=== PATIENT | female | born 1950 | race Caucasian/White ===

== ENCOUNTER 2017-09-05 10:07 | Emergency (ER) | payer MEDICARE ==
[2017-09-05 12:19] LABS: ALT (SGPT) 28 U/L (8-55); AST (SGOT) 27 U/L (5-34); Albumin 3.6 g/dL (3.4-4.8); Alkaline Phosphatase 78 U/L (40-150); Anion Gap 11 mmol/L (10-20); BUN (Urea Nitrogen) 13 mg/dL (9.8-20.1); Bilirubin, Total 1.2 mg/dL (0.2-1.2); Calc. Creatinine Clearance 0 mL/min (70-130); Calcium 8.9 mg/dL (7.8-10.44); Carbon Dioxide 24 mmol/L (23-31); Chloride 99 mmol/L (98-107); Estimated GFR-MDRD 67; Globulin 3.1 g/dL (2.4-3.5); Glucose 144 mg/dL (80-115); Potassium 3.4 mmol/L (3.5-5.1); Protein, Total 6.7 g/dL (6.0-8.3); Sodium 131 mmol/L (136-145)
--- NOTE | 2017-09-05 12:27 | RAD ---
RADIOGRAPH CHEST 1 VIEW: Date: 09-05-17 Time: 11:58 a.m. HISTORY: 66-year-old female with fever. COMPARISON: None. FINDINGS: Mild patchy airspace densities are noted at the left lower lung zone and right upper lung zone. There is an irregularly shaped, approximately 2 x 2 cm stellate density overlying the right lower lung zon e that appears different from the other infiltrates. Cardiomediastinal silhouette is normal. No pulmo nary edema, pneumothorax, or effacement of the lateral costophrenic angles. IMPRESSION: 1. Right upper lobe and left lower lobe pulmonary opacities. In the setting of fever, they could rep resent pneumonia. 2. Stellate density overlying the right lower lung zone which has a different appearance compared to the other pulmonary densities. Possibilities include pulmonary scar and primary neoplasm. 3. Recommend serial follow up two view chest radiographs, beginning in one week. If the right basilar density persists, CT would be recommended at that time. [facility] POS: [facility]
[2017-09-05 12:28] LABS: Band 16 % (5-11); Hemoglobin 11.8 g/dL (12.0-16.0); Lymphocytes 5 % (21-51); MDiff Complete? YES; Mean Corpuscular HGB CONC 33.1 g/dL (32.0-36.0); Mean Corpuscular Hemoglobin 30.9 pg (27.0-31.0); Mean Corpuscular Volume 93.3 fl (81.0-99.0); Mean Platelet Volume 7.2 fL (7.4-10.4); Monocytes 6 % (0-10); Neutrophil 73 % (42-75); Platelet Count 114 thou/uL (130-400); Red Blood Cell (RBC) Count 3.81 mill/uL (4.20-5.40); White Blood Cell (WBC) Count 12.7 thou/uL (4.8-10.8)
[2017-09-05 13:09] LABS: Bilirubin Small (Negative); Blood, Urine Small (Negative); Clarity CLOUDY (Clear); Glucose, Urine (Dipstick) Negative (Negative); Leukocyte Large (Negative); Nitrite Positive (Negative); Protein, Urine (Dipstick) 30 mg/dL (Neg-Trace)
[2017-09-05 13:12] LABS: Bacteria/HPF 4+ HPF (None Seen); Hyaline Casts/LPF 0-3 HYALINE CAST LPF (0-3 Hyaline); Pathc Cast-AUWi Flag 0.13 (0-2.49); Squamous Epithelial None Seen HPF (0-3)
== END 2017-09-05 13:32 | disposition home or self-care (01) ==
LOC: ERS 10:07
DX: B34.9 Viral infection, unspecified (principal); E86.0 Dehydration; N39.0 Urinary tract infection, site not specified; E20.9 Hypoparathyroidism, unspecified; E78.5 Hyperlipidemia, unspecified; I10 Essential (primary) hypertension; F41.9 Anxiety disorder, unspecified; F32.9 Major depressive disorder, single episode, unspecified; Z87.891 Personal history of nicotine dependence
CPT/HCPCS: 36415; 71045; 80053; 81003; 81015; 85025; 87804; 96360

== ENCOUNTER 2017-09-23 19:19 | Observation (INO) | payer MEDICARE ==
[~2017-09-23 19:19] MED LIST: ISOVUE-370 76%-LOCM 1 ML ONE
[2017-09-23 19:54] LABS: #Basophils 0.1 thou/uL (0.0-0.2); #Eosinphils 0.2 thou/uL (0.0-0.7); #Lymphocytes 3.2 thou/uL (1.20-3.40); #Monocytes 0.5 thou/uL (0.11-0.59); #Neutrophils 3.1 thou/uL (1.40-6.50); %Basophils 1.3 % (0.0-1.0); %Eosinophils 2.9 % (0.0-10.0); %Lymphocytes 44.9 % (21.0-51.0); %Monocytes 7.2 % (0.0-10.0); %Neutrophils 43.7 % (42.0-75.0); Hemoglobin 10.5 g/dL (12.0-16.0); Mean Corpuscular HGB CONC 32.8 g/dL (32.0-36.0); Mean Corpuscular Volume 94.5 fl (81.0-99.0); Mean Platelet Volume 6.3 fL (7.4-10.4); Platelet Count 276 thou/uL (130-400); RBC Distribution Width 12.6 % (11.5-14.5); Red Blood Cell (RBC) Count 3.38 mill/uL (4.20-5.40)
--- NOTE | 2017-09-23 20:03 | RAD ---
PORTABLE CHEST: 09/23/17 HISTORY: Chest pain. Lung benson are clear. No infiltrates seen. Heart and mediastinum are unremarkable. IMPRESSION: No acute abnormality identified. POS: [facility]
[2017-09-23 20:18] LABS: ALT (SGPT) 30 U/L (8-55); AST (SGOT) 35 U/L (5-34); Albumin 3.7 g/dL (3.4-4.8); Alkaline Phosphatase 88 U/L (40-150); Anion Gap 10 mmol/L (10-20); BUN (Urea Nitrogen) 13 mg/dL (9.8-20.1); Bilirubin, Total 0.4 mg/dL (0.2-1.2); CK (CPK) 85 U/L (29-168); Calc. Creatinine Clearance 0 mL/min (70-130); Calcium 9.2 mg/dL (7.8-10.44); Carbon Dioxide 31 mmol/L (23-31); Chloride 102 mmol/L (98-107); Estimated GFR-MDRD 69; Globulin 2.8 g/dL (2.4-3.5); Glucose 102 mg/dL (80-115); Lipase 21 U/L (8-78); Potassium 3.6 mmol/L (3.5-5.1); Protein, Total 6.5 g/dL (6.0-8.3); Sodium 139 mmol/L (136-145)
[2017-09-23 20:22] LABS: CKMB 1.8 ng/mL (0-6.6); Troponin I Less than 0.010 ng/mL (< 0.028)
[2017-09-23] MEDS ORDERED: Nitroglycerin 0.4 MG TAB (25 Tab Bottle) PO PRN (21:16)
[2017-09-23] MEDS ORDERED: Acetaminophen 325 MG TAB PO PRN ×2 (21:19→22:58)
[2017-09-23] MEDS ORDERED: Ondansetron PF 4 MG/2 ML Vial IVP PRN ×2 (21:19→22:58)
[2017-09-23] MEDS ORDERED: Milk Of Magnesia 30 ML UDCUP PO PRN (21:19)
--- NOTE | 2017-09-23 21:54 | CT ---
CT PULMONARY ANGIO OF CHEST WITH CONTRAST: 09/23/17 Multiple axial tomograms obtained through the chest with IV enhancement. HISTORY: Chest pain. FINDINGS: Pulmonary arteries are adequately opacified and appear unremarkable. No evidence of pulmonary embolus identified. Thoracic aorta shows no evidence of dissection. Mediastinum unremarkable. Review of the lungs shows confluent atelectasis and/or infiltrate in the lingula adjacent to the fiss ure on the left. The lungs otherwise appear clear. Some mild stranding in the anterior lower right middle lobe is seen . There is also some subtle infiltrative changes in the right upper lobe along the fissure which coul d potentially represent inflammatory infiltrate. IMPRESSION: 1. No evidence of pulmonary embolus. 2. Confluent infiltrate and/or atelectasis in the lingula on the left abutting the heart border. Infectious etiology should be considered. 3. Also possible infectious infiltrate in the right upper lobe along the fissure. Atelectatic ch anges in the anterior right middle lobe. POS: [facility]
[2017-09-23] MEDS ORDERED: Fentanyl 100 MCG/2 ML VIAL SLOW IVP PRN (22:58)
[2017-09-23] MEDS ORDERED: Ondansetron ODT 4 MG TAB SL PRN (22:58)
[2017-09-23] MEDS ORDERED: HYDROcodone/Acetaminophen 5/325 mg Tablet PO PRN ×2 (22:58)
[2017-09-23 23:07] VITALS: BMI 19.3
[2017-09-23 23:28] LABS: Troponin I 0.014 ng/mL (< 0.028)
[2017-09-24 02:12] LABS: #Basophils 0.1 thou/uL (0.0-0.2); #Eosinphils 0.2 thou/uL (0.0-0.7); #Lymphocytes 2.6 thou/uL (1.20-3.40); #Monocytes 0.6 thou/uL (0.11-0.59); #Neutrophils 2.4 thou/uL (1.40-6.50); %Basophils 1.5 % (0.0-1.0); %Lymphocytes 44.7 % (21.0-51.0); %Monocytes 10.1 % (0.0-10.0); %Neutrophils 40.6 % (42.0-75.0); Hemoglobin 10.4 g/dL (12.0-16.0); Mean Corpuscular HGB CONC 33.9 g/dL (32.0-36.0); Mean Corpuscular Volume 94.4 fl (81.0-99.0); Mean Platelet Volume 6.2 fL (7.4-10.4); Platelet Count 223 thou/uL (130-400); RBC Distribution Width 12.5 % (11.5-14.5); Red Blood Cell (RBC) Count 3.25 mill/uL (4.20-5.40); White Blood Cell (WBC) Count 5.8 thou/uL (4.8-10.8)
[2017-09-24 02:42] LABS: Anion Gap 9 mmol/L (10-20); BUN (Urea Nitrogen) 11 mg/dL (9.8-20.1); Calc. Creatinine Clearance 59 mL/min (70-130); Calcium 9.1 mg/dL (7.8-10.44); Carbon Dioxide 32 mmol/L (23-31); Chloride 105 mmol/L (98-107); Estimated GFR-MDRD 76; Glucose 111 mg/dL (80-115); Potassium 3.6 mmol/L (3.5-5.1); Sodium 142 mmol/L (136-145); Troponin I Less than 0.010 ng/mL (< 0.028)
[2017-09-24] MEDS ORDERED: traMADol HCl 50 MG TAB PO PRN (03:25)
[2017-09-24] MEDS ORDERED: Melatonin 3 MG TAB PO PRN (03:25)
[2017-09-24] MEDS ORDERED: ALPRAZolam 0.5 MG TAB PO PRN (03:25)
[2017-09-24 05:54] LABS: Cardiac Risk 2.3 (Less than 4.5)
[2017-09-24] MEDS ORDERED: Levothyroxine Sodium 50 MCG TAB PO SCH (06:00)
--- NOTE | 2017-09-24 07:03 | HP ---
PRIMARY CARE PHYSICIAN: Pedro Luis Mills M.D. PRESENTING COMPLAINT: Chest pain. HISTORY OF PRESENT ILLNESS: A 66-year-old female with a past medical history of hypothyroidism, hype rtension, osteoarthritis, and anxiety/depression, who presents with a history of chest pain. She rep orts she has had chest pain for several months, but then yesterday she developed severe 10/10 retrost ernal pain, which radiated to her right shoulder and back, lasted for a few minutes and then spontane ously went away. It was associated with nausea, but no vomiting, shortness of breath, PND, orthopnea , or lower extremity edema. She took 2 nitroglycerin pills, which relieved her pain. However, pain continued to return and so decided to come to the emergency room. She has had a stress test several years ago, which she reports that was normal. Also reports a cardiac catheterization years ago, whic h according to her was normal. Chest pain is currently resolved and the patient reports she took 81 mg of aspirin today before coming to the emergency room. PAST MEDICAL HISTORY: As stated in the HPI. PAST SURGICAL HISTORY: None. FAMILY HISTORY: Reviewed and noncontributory as the patient is adopted. SOCIAL HISTORY: She does not smoke cigarettes, drink alcohol or use illicit drugs. ALLERGIES: CODEINE. REVIEW OF SYSTEMS: A 12-point review of systems conducted and negative except as stated in HPI. PHYSICAL EXAMINATION: VITAL SIGNS: Stable and within hemodynamic limits. GENERAL: Not in acute distress, lying comfortably in bed. HEENT: Normocephalic, atraumatic. Not pale, anicteric. PERRLA, EOMI. NECK: Supple, full range of movement. No JVD. RESPIRATORY: Vesicular breath sounds bilaterally. No wheezes or rales. CARDIOVASCULAR: S1, S2 only. No murmurs, rubs or gallops. ABDOMEN: Bowel sounds positive, nontender, nondistended, no organomegaly. GENITOURINARY: Deferred. MUSCULOSKELETAL: Full range of movement. SKIN: Warm and well-perfused. NEUROLOGIC: Alert and well oriented to time, place and person. No focal deficits. PSYCHIATRIC: Normal mood and affect. LABORATORY DATA: CBC with no marked abnormalities. Chemistry also with no marked abnormalities. Tr oponin trended and negative. Chest x-ray showed no acute pathology. CTA chest showed no evidence of pulmonary embolus, but shows confluent infiltrate and/or atelectasis in the lingula on the left abut ting the heart border; infectious etiology should be considered, also possible infectious infiltrate in the right upper border along the fissure, and atelectatic changes in the right anteromedial lobe. ASSESSMENT AND PLAN: 1. Chest pain, concern for possible ACS as the patient has had history of chest pain, is on nitrogly cerin and aspirin and has had cardiac workup in the past for atypical chest pain including stress jillian t and catheterization. We will admit under observation on telemetry, trend cardiac enzymes, placed o n aspirin, nitroglycerin and morphine p.r.n. for chest pain. Oxygen supplementation as required and obtain a Cardiology consult. 2. Hypothyroidism. We will get TSH and continue home medications. 3. Hypertension. Blood pressure is currently well controlled on the outpatient basis. She takes me toprolol. We will resume medications. 4. Hyperlipidemia. Resume statin. 5. Anxiety/depression. Denies SI, HI or depressed mood. We will resume her home regimen. Of note, we will also obtain a lipid profile.
[2017-09-24] MEDS ORDERED: Oxybutynin ER 5 MG TAB PO SCH (09:00)
[2017-09-24] MEDS ORDERED: Metoprolol Tartrate 25 MG TAB PO SCH (09:00)
[2017-09-24] MEDS ORDERED: Docusate 100 MG CAP PO SCH (09:00)
[2017-09-24] MEDS ORDERED: Pramipexole Di-HCl 1 MG TAB PO SCH (09:00)
[2017-09-24] MEDS ORDERED: Aspirin 81 mg Enteric Coated Tablet PO SCH (09:00)
[2017-09-24] MEDS ORDERED: DULoxetine 60 MG CAP PO SCH (09:00)
[2017-09-24] MEDS ORDERED: Rosuvastatin 10 MG TAB PO SCH (09:00)
[2017-09-24] MEDS ORDERED: Saccharomyces boulardii 250 MG CAP PO SCH (09:00)
[2017-09-24] MEDS ORDERED: Non-Formulary Item 1 EACH (Biotin [Biotin] 1,000 MCG) PO SCH (09:00)
[2017-09-24] MEDS ORDERED: ADENOSINE 60 MG/20 ML VIAL ONE (13:00)
[2017-09-24] MEDS: Heparin 5,000 UNITS/ML VIAL SC SCH ×2 (14:46→16:23)
--- NOTE | 2017-09-24 15:31 | NM ---
CARDIAC SPECT: CLINICAL HISTORY: 66-year-old female with chest pain and hypertension. TECHNIQUE: A myocardial perfusion scan was performed using the single isotope one day protocol with technetium-9 9m sestamibi. 10 mCi were injected intravenously for the rest exam followed by 28 mCi for the stress exam. Pharmacologic stress with Adenosine was monitored and interpreted by Dr. Tidwell. FINDINGS: Homogeneous tracer distribution is seen in the myocardial segments on stress and rest images without fixed or reversible defects. TID ratio measures 1.36. GATED SPECT LVEF: 81%. WALL MOTION EXAM: Normal. IMPRESSION: TID ratio is 1.36. Clinical correlation is recommended. POS: [facility]
[2017-09-24 16:16] VITALS: BP 136/67; TEMP 98.2
--- NOTE | 2017-09-24 21:17 | DIS ---
DATE OF ADMISSION: 09/23/2017 DATE OF DISCHARGE: 09/24/2017 DISCHARGE DIAGNOSES: 1. Chest pain, non-cardiac. 2. Hypertension. 3. Hypothyroidism. 4. Anxiety/depression. 5. Dyslipidemia. CONSULTATIONS: None. PERTINENT LABORATORY AND X-RAY FINDINGS: Basic metabolic profile within normal limits. Troponin I n egative x3. Total cholesterol 123, triglycerides 73, HDL 54, LDL 54. TSH 3.0. CBC showed a hemoglo bin of 10.4, hematocrit 31. CT angiogram of the chest dated 09/23/2017 showed no evidence for pulmon chloe embolus. Atelectasis noted. Portable chest x-ray dated 09/23/2017 showed no acute cardiopulmona ry process. HOSPITAL COURSE: The patient was observed on the telemetry unit after initially presenting with ches t pain, undergoing serial troponin I negative x3. The patient underwent a Cardiolite stress testing showing no evidence of reversible or fixed ischemia with calculated ejection fraction of 81%. Teleme try monitoring showed sinus mechanism without evidence of acute arrhythmia or dysrhythmia. The patie nt overall remained clinically stable under observation with likely chest pain, noncardiac in nature. The patient overall clinically stable and ready for discharge on 09/24/2017. DISCHARGE MEDICATIONS: 1. Xanax 0.5 mg p.o. t.i.d. 2. Enteric coated aspirin 81 mg 1 tab p.o. daily. 3. Biotin 1000 mcg p.o. daily. 4. Vitamin D3 one capsule p.o. daily. 5. Cymbalta 60 mg p.o. daily. 6. Synthroid 50 mcg p.o. daily. 7. Melatonin 5 mg p.o. at bedtime p.r.n. 8. Lopressor 25 mg p.o. daily. 9. Nitroglycerin 0.4 mg sublingually q.5 minutes p.r.n. chest pain. 10. Oxybutynin 10 mg p.o. daily. 11. Protonix 40 mg p.o. daily. 12. Pramipexole 1 mg p.o. b.i.d. 13. Crestor 10 mg p.o. daily. 14. Tramadol 50 mg 1-2 tabs p.o. q.6 hours p.r.n. pain. FOLLOWUP: The patient may follow up with her primary care provider, Dr. Pedro Luis Mills within 7 days o f discharge. The patient may follow up with her primary computer help desk representative, Dr. Collins on an as needed bas is. CONDITION ON DISCHARGE: Stable. ACTIVITY: Ad marie. DIET: Heart healthy. CODE STATUS: FULL. DISPOSITION: Home on 09/24/2017.
[2017-09-25] MEDS ORDERED: Prevnar 13-Val Conj/PF 0.5 ML SYRINGE IM ONE (09:00)
--- NOTE | 2017-09-30 15:14 | EKG ---
Test Reason : Blood Pressure : / mmHG Vent. Rate : 074 BPM Atrial Rate : 075 BPM P-R Int : 000 ms QRS Dur : 080 ms QT Int : 394 ms P-R-T Axes : 000 -26 054 degrees QTc Int : 437 ms Accelerated Junctional rhythm Abnormal ECG Confirmed by JOSE LAWRENCE ([id number]), editor newspaper BALDOMERO MONTGOMERY ([id number]) on 09/30/2017 3:13:29 PM Referred By: Confirmed By:JOSE LAWRENCE
--- NOTE | 2017-10-09 14:07 | STRESS ---
Acquisition Time: 2017-09-24 12:21:42 Total Exercise Time: 00:04:00 Test Indications: CHEST PAIN Medications: Protocol: ADENOSINE Max HR: 095 BPM 62% of Pred: 152 BPM Max BP: 146/068 mmHG Max Work Load: 1.0 METS RESTING ECG: NORMAL SINUS RHYTHM NORMAL BP RESPONSE ECTOPY: NONE ECG STRESS: NO SIGNIFICANT CHANGES INTERPRETATION: NEGATIVE ECG/AWAIT NUCLEAR IMAGES FOR DEFINITIVE DIAGNOSIS Confirmed by DR. Earl PURDY ([id number]), editorial project manager AC DEGROOT ([id number]) on 10/09/2017 2:06:34 PM Referred By: MD Kelly HUGGINS Confirmed By:DR. Earl PURDY
== END 2017-09-24 17:09 | disposition home or self-care (01) ==
LOC: ERS 19:19 → 2SW 23:02
PROVIDERS: ADMIT Internal Medicine; ATTEND Internal Medicine
DX: R07.2 Precordial pain (principal); I10 Essential (primary) hypertension; E03.9 Hypothyroidism, unspecified; F41.8 Other specified anxiety disorders; E78.5 Hyperlipidemia, unspecified; M19.90 Unspecified osteoarthritis, unspecified site; E78.00 Pure hypercholesterolemia, unspecified; Z79.82 Long term (current) use of aspirin; Z79.899 Other long term (current) drug therapy; Z90.49 Acquired absence of other specified parts of digestive tract; Z90.710 Acquired absence of both cervix and uterus; Z98.890 Other specified postprocedural states
CPT/HCPCS: 71045; 71275; 78452; 80048; 80053; 80061; 82550; 82553; 83690; 84443; 84484 ×3; 85025 ×2; 85379; 93005; 93017; 94760; 99285; A9500; G0378; 36415; J0153; J1644

== ENCOUNTER 2017-10-18 12:54 | Outpatient (CLI) | payer MEDICARE | END 2017-10-18 12:55 | disposition home or self-care (01) | LOC: BICMAMMO 12:54 | PROVIDERS: ATTEND Internal Medicine | DX: Z12.31 Encounter for screening mammogram for malignant neoplasm of breast (principal) | CPT/HCPCS: 77063; 77067 ==

== ENCOUNTER 2017-11-10 13:03 | Emergency (ER) | payer MEDICARE ==
[2017-11-10 15:21] LABS: #Basophils 0.1 thou/uL (0.0-0.2); #Eosinphils 0.4 thou/uL (0.0-0.7); #Lymphocytes 1.7 thou/uL (1.20-3.40); #Neutrophils 7.4 thou/uL (1.40-6.50); %Basophils 1.1 % (0.0-1.0); %Eosinophils 3.9 % (0.0-10.0); %Lymphocytes 16.1 % (21.0-51.0); %Monocytes 9.8 % (0.0-10.0); Hemoglobin 11.5 g/dL (12.0-16.0); Mean Corpuscular HGB CONC 31.8 g/dL (32.0-36.0); Mean Corpuscular Hemoglobin 30.3 pg (27.0-31.0); Mean Corpuscular Volume 95.3 fl (81.0-99.0); Mean Platelet Volume 7.2 fL (7.4-10.4); Platelet Count 199 thou/uL (130-400); RBC Distribution Width 12.7 % (11.5-14.5); Red Blood Cell (RBC) Count 3.78 mill/uL (4.20-5.40); White Blood Cell (WBC) Count 10.6 thou/uL (4.8-10.8)
[2017-11-10 15:40] LABS: ALT (SGPT) 33 U/L (8-55); AST (SGOT) 33 U/L (5-34); Albumin 3.9 g/dL (3.4-4.8); Alkaline Phosphatase 73 U/L (40-150); Anion Gap 8 mmol/L (10-20); BUN (Urea Nitrogen) 11 mg/dL (9.8-20.1); Bilirubin, Total 0.4 mg/dL (0.2-1.2); Calc. Creatinine Clearance 0 mL/min (70-130); Calcium 8.9 mg/dL (7.8-10.44); Carbon Dioxide 28 mmol/L (23-31); Chloride 104 mmol/L (98-107); Estimated GFR-MDRD 79; Globulin 2.7 g/dL (2.4-3.5); Glucose 109 mg/dL (80-115); Potassium 3.6 mmol/L (3.5-5.1); Protein, Total 6.6 g/dL (6.0-8.3); Sodium 136 mmol/L (136-145)
[2017-11-10] MEDS ORDERED: Acetaminophen 500 MG TAB ONE (15:59)
--- NOTE | 2017-11-10 16:25 | CT ---
CONTRAST ENHANCED CT IMAGES OF SOFT TISSUE NECK: 11/10/17 HISTORY: Patient complaining of left sided neck pain, cyst-like knot to left neck for two days. Contrast enhanced CT images of the soft tissue neck obtained. No definite evidence of neck masses or lesions seen. No evidence of lymphadenopathy seen. The right a nd left common and internal carotid arteries are patent. The paranasal sinuses are well aerated. No e vidence of submandibular masses seen. No significant evidence of cystic or significant large solid ma ss is seen. Minimally enlarged left sided multilevel deep and spinal accessory chain lymph nodes are seen all diameter measuring less than 1 cm. IMPRESSION: No definite evidence of soft tissue neck masses or lesions seen. According to practitioner Jeanmarie, there is a left lateral neck mass. I do not visualize this on CT. If there is a palpable lesion, I do recommend ENT consultation to further evaluate this patient. Multiple subcentimeter deep cervical and spinal accessory chain lymph nodes are present slightly more prominent on the left than on the right. POS: [facility]
== END 2017-11-10 17:14 | disposition home or self-care (01) ==
LOC: ERS 13:03
DX: L04.0 Acute lymphadenitis of face, head and neck (principal); E20.9 Hypoparathyroidism, unspecified; E03.9 Hypothyroidism, unspecified; E78.5 Hyperlipidemia, unspecified; I10 Essential (primary) hypertension; F41.9 Anxiety disorder, unspecified; F32.9 Major depressive disorder, single episode, unspecified; Z87.891 Personal history of nicotine dependence
CPT/HCPCS: 36415; 70491; 80053; 85025

== ENCOUNTER 2017-12-08 00:10 | Emergency (ER) | payer MEDICARE ==
[2017-12-08 01:49] LABS: #Basophils 0.1 thou/uL (0.0-0.2); #Eosinphils 0.4 thou/uL (0.0-0.7); #Lymphocytes 2.2 thou/uL (1.20-3.40); #Monocytes 0.7 thou/uL (0.11-0.59); #Neutrophils 2.5 thou/uL (1.40-6.50); %Basophils 1.1 % (0.0-1.0); %Eosinophils 7.3 % (0.0-10.0); %Lymphocytes 36.8 % (21.0-51.0); %Monocytes 11.9 % (0.0-10.0); %Neutrophils 42.9 % (42.0-75.0); Hemoglobin 10.9 g/dL (12.0-16.0); Mean Corpuscular HGB CONC 33.7 g/dL (32.0-36.0); Mean Corpuscular Hemoglobin 31.4 pg (27.0-31.0); Mean Corpuscular Volume 93.4 fl (81.0-99.0); Mean Platelet Volume 6.9 fL (7.4-10.4); Platelet Count 198 thou/uL (130-400); RBC Distribution Width 12.8 % (11.5-14.5); Red Blood Cell (RBC) Count 3.48 mill/uL (4.20-5.40); White Blood Cell (WBC) Count 5.8 thou/uL (4.8-10.8)
[2017-12-08 02:19] LABS: ALT (SGPT) 43 U/L (8-55); AST (SGOT) 42 U/L (5-34); Albumin 3.8 g/dL (3.4-4.8); Alkaline Phosphatase 68 U/L (40-150); Anion Gap 9 mmol/L (10-20); BUN (Urea Nitrogen) 14 mg/dL (9.8-20.1); Bilirubin, Total 0.3 mg/dL (0.2-1.2); Calc. Creatinine Clearance 0 mL/min (70-130); Calcium 9.2 mg/dL (7.8-10.44); Carbon Dioxide 29 mmol/L (23-31); Chloride 104 mmol/L (98-107); Estimated GFR-MDRD 70; Globulin 2.7 g/dL (2.4-3.5); Glucose 109 mg/dL (80-115); Protein, Total 6.5 g/dL (6.0-8.3); Sodium 138 mmol/L (136-145)
[2017-12-08 02:23] LABS: Troponin I Less than 0.010 ng/mL (< 0.028)
--- NOTE | 2017-12-08 08:37 | RAD ---
TWO VIEWS CHEST: Date: 12-08-17 Provided Clinical History: Chest pain. FINDINGS: Comparison is made with the CT dated 09-23-17. Cardiac and mediastinal silhouette is within normal limits. There is air space disease in the region of the lingula as well as possibly within the right upper lung zone on the frontal view. No pleural f luid or pneumothorax apparent. IMPRESSION: Lingular and possibly right upper lobe parenchymal opacities. These could reflect infectious change t hrough the lingular opacity may be persistent from the 09-23-[address] study[address] CT chest follow up. Code T POS: [facility]
== END 2017-12-08 04:23 | disposition home or self-care (01) ==
LOC: ERS 00:10
DX: R07.2 Precordial pain (principal); E03.9 Hypothyroidism, unspecified; E78.5 Hyperlipidemia, unspecified; I10 Essential (primary) hypertension; F41.9 Anxiety disorder, unspecified; F32.9 Major depressive disorder, single episode, unspecified; Z87.891 Personal history of nicotine dependence; Z79.82 Long term (current) use of aspirin; Z79.899 Other long term (current) drug therapy
CPT/HCPCS: 36415; 71046; 80053; 82553; 84484; 85025; 93005

== ENCOUNTER 2018-07-22 20:17 | Emergency (ER) | payer MEDICARE | END 2018-07-22 20:55 | disposition home or self-care (01) | LOC: ERS 20:17 | DX: T23.031A Burn of unspecified degree of multiple right fingers (nail), not including thumb, initial encounter (principal); E03.9 Hypothyroidism, unspecified; I10 Essential (primary) hypertension; Z87.891 Personal history of nicotine dependence; Z79.899 Other long term (current) drug therapy; X10.2XXA Contact with fats and cooking oils, initial encounter | CPT/HCPCS: 99283 ==

== ENCOUNTER 2018-09-22 23:20 | Emergency (ER) | payer MEDICARE ==
[2018-09-23 00:09] LABS: #Basophils 0.1 thou/uL (0.0-0.2); #Eosinphils 0.2 thou/uL (0.0-0.7); #Lymphocytes 3.7 thou/uL (1.20-3.40); #Monocytes 0.9 thou/uL (0.11-0.59); %Basophils 1.2 % (0.0-1.0); %Eosinophils 2.5 % (0.0-10.0); %Lymphocytes 41.8 % (21.0-51.0); %Monocytes 10.3 % (0.0-10.0); %Neutrophils 44.1 % (42.0-75.0); Hemoglobin 10.7 g/dL (12.0-16.0); Mean Corpuscular HGB CONC 31.1 g/dL (32.0-36.0); Mean Corpuscular Hemoglobin 29.5 pg (27.0-31.0); Mean Corpuscular Volume 95.1 fL (78.0-98.0); Mean Platelet Volume 6.5 fL (7.4-10.4); Platelet Count 268 thou/uL (130-400); RBC Distribution Width 12.2 % (11.5-14.5); Red Blood Cell (RBC) Count 3.62 mill/uL (4.20-5.40)
[2018-09-23] MEDS ORDERED: Lidocaine Viscous Sol 2% 15 ml UD Cup ONE (00:21)
[2018-09-23] MEDS ORDERED: Mag-Al 1200 mg/1200 mg/30 ML UDCUP ONE (00:21)
[2018-09-23 00:31] LABS: ALT (SGPT) 52 U/L (8-55); AST (SGOT) 34 U/L (5-34); Albumin 3.9 g/dL (3.4-4.8); Alkaline Phosphatase 82 U/L (40-150); Anion Gap 12 mmol/L (10-20); BUN (Urea Nitrogen) 13 mg/dL (9.8-20.1); Bilirubin, Total 0.3 mg/dL (0.2-1.2); Calc. Creatinine Clearance 0 mL/min (70-130); Calcium 9.4 mg/dL (7.8-10.44); Carbon Dioxide 33 mmol/L (23-31); Chloride 100 mmol/L (98-107); Estimated GFR-MDRD 71; Globulin 2.7 g/dL (2.4-3.5); Glucose 85 mg/dL (80-115); Potassium 3.2 mmol/L (3.5-5.1); Protein, Total 6.6 g/dL (6.0-8.3); Sodium 142 mmol/L (136-145)
--- NOTE | 2018-09-23 06:05 | RAD ---
CHEST 1 VIEW: HISTORY: Chest pain. COMPARISON: Radiograph 12/08/2017. FINDINGS: Lungs are clear. No pneumothorax or effusion. Cardiac silhouette and mediastinal contours are withi n normal limits. No acute osseous abnormality. IMPRESSION: No acute intrathoracic abnormality. POS: [facility]
== END 2018-09-23 01:41 | disposition home or self-care (01) ==
LOC: ERS 23:20
DX: R07.89 Other chest pain (principal); E03.9 Hypothyroidism, unspecified; E78.5 Hyperlipidemia, unspecified; I10 Essential (primary) hypertension; F41.9 Anxiety disorder, unspecified; F32.9 Major depressive disorder, single episode, unspecified; Z87.891 Personal history of nicotine dependence; Z79.899 Other long term (current) drug therapy; Z79.82 Long term (current) use of aspirin
CPT/HCPCS: 71045; 80053; 84484; 85025; 93005; 94760

== ENCOUNTER 2018-10-31 21:45 | Emergency (ER) | payer MEDICARE ==
--- NOTE | 2018-10-31 22:41 | CT ---
FExam: CT brain PROVIDED CLINICAL HISTORY: Injury COMPARISON: 02/25/2008 FINDINGS: The ventricular system is normal in size and morphology. No evidence for intracranial hemorrhage or mass effect. The extracranial soft tissues and osseous structures demonstrate an unremarkable CT appe arance. IMPRESSION: No evidence for intracranial hemorrhage or mass effect.
--- NOTE | 2018-10-31 22:44 | CT ---
FEXAM: CT facial bones PROVIDED CLINICAL HISTORY: Injury COMPARISON: None FINDINGS: No evidence for fracture. The paranasal sinuses are free of significant opacity. The globes and other orbital contents appear normal. IMPRESSION: No evidence for fracture.
--- NOTE | 2018-10-31 22:48 | RAD ---
FEXAM: Lumbar spine radiographs 3 views PROVIDED CLINICAL HISTORY: Back pain status post injury COMPARISON: 02/25/2008 FINDINGS: 5 nonrib-bearing lumbar-type vertebral bodies are present. Lumbar alignment is normal. Vertebral body heights are preserved. Lumbar degenerative changes are seen. No evidence for fracture or other acute osseous abnormality. Surgical clips right upper quadrant. IMPRESSION: No evidence for an acute osseous abnormality.
[2018-10-31] MEDS ORDERED: Acetaminophen 500 MG TAB ONE (22:59)
[2018-10-31] MEDS ORDERED: Cyclobenzaprine 10 MG TAB ONE (22:59)
== END 2018-10-31 23:15 | disposition home or self-care (01) ==
LOC: ERS 21:45
DX: S00.03XA Contusion of scalp, initial encounter (principal); M54.5 Low back pain; I10 Essential (primary) hypertension; E03.9 Hypothyroidism, unspecified; E78.5 Hyperlipidemia, unspecified; F41.9 Anxiety disorder, unspecified; F32.9 Major depressive disorder, single episode, unspecified; Z79.899 Other long term (current) drug therapy; Z79.82 Long term (current) use of aspirin; V49.9XXA Car occupant (driver) (passenger) injured in unspecified traffic accident, initial encounter
CPT/HCPCS: 70450; 70486; 72100

== ENCOUNTER 2018-12-13 19:58 | Emergency (ER) | payer MEDICARE | END 2018-12-13 21:00 | disposition home or self-care (01) | LOC: ERS 19:58 | DX: R21 Rash and other nonspecific skin eruption (principal); E03.9 Hypothyroidism, unspecified; E78.5 Hyperlipidemia, unspecified; I10 Essential (primary) hypertension; F41.9 Anxiety disorder, unspecified; F32.9 Major depressive disorder, single episode, unspecified; J44.9 Chronic obstructive pulmonary disease, unspecified; Z87.891 Personal history of nicotine dependence; Z79.899 Other long term (current) drug therapy; Z79.82 Long term (current) use of aspirin | CPT/HCPCS: 99282 ==

== ENCOUNTER 2019-02-14 10:54 | Outpatient (CLI) | payer MEDICARE ==
--- NOTE | 2019-02-14 11:24 | MMO ---
Bilateral MAMMO Bilat Screen [facility]DI[facility]ANE. CLINICAL HISTORY: Patient is 68 years old and is seen for screening. The patient has no family history of breast cancer. The patient has no personal history of cancer. VIEWS: The views performed were: bilateral craniocaudal with tomosynthesis and bilateral mediolateral oblique with tomosynthesis. FILMS COMPARED: The present examination has been compared to prior imaging studies performed at [facility] on 09/21/2016 and 10/18/2017. MAMMOGRAM FINDINGS: There are scattered fibroglandular densities. There are stable benign appearing calcifications seen in both breasts. There are no suspicious masses, suspicious calcifications, or new areas of architectural distortion. IMPRESSION: THERE IS NO MAMMOGRAPHIC EVIDENCE OF MALIGNANCY. A ROUTINE FOLLOW-UP MAMMOGRAM IN 1 YEAR IS RECOMMENDED. THE RESULTS OF THIS EXAM WERE SENT TO THE PATIENT. ACR BI-RADS Category 2 - Benign finding MAMMOGRAPHY NOTE: 1. A negative mammogram report should not delay a biopsy if a dominant of clinically suspicious mass is present. 2. Approximately 10% to 15% of breast cancers are not detected by mammography. 3. Adenosis and dense breasts may obscure an underlying neoplasm. Reported by: JAMES TURCIOS MD Electonically Signed: [id number]
== END 2019-02-14 10:55 | disposition home or self-care (01) ==
LOC: BICMAMMO 10:54
PROVIDERS: ATTEND Internal Medicine
DX: Z12.31 Encounter for screening mammogram for malignant neoplasm of breast (principal)
CPT/HCPCS: 77063; 77067

== ENCOUNTER 2019-02-15 10:06 | Emergency (ER) | payer MEDICARE ==
[2019-02-15 11:00] LABS: #Basophils 0.1 thou/uL (0.0-0.2); #Eosinphils 0.1 thou/uL (0.0-0.7); #Lymphocytes 1.6 thou/uL (1.20-3.40); #Monocytes 0.7 thou/uL (0.11-0.59); #Neutrophils 5.2 thou/uL (1.40-6.50); %Basophils 0.9 % (0.0-1.0); %Eosinophils 1.8 % (0.0-10.0); %Lymphocytes 21.1 % (21.0-51.0); %Monocytes 8.9 % (0.0-10.0); %Neutrophils 67.4 % (42.0-75.0); Hemoglobin 12.5 g/dL (12.0-16.0); Mean Corpuscular HGB CONC 32.4 g/dL (32.0-36.0); Mean Corpuscular Hemoglobin 29.2 pg (27.0-31.0); Mean Corpuscular Volume 90.3 fL (78.0-98.0); Mean Platelet Volume 6.8 fL (7.4-10.4); Platelet Count 273 thou/uL (130-400); RBC Distribution Width 12.9 % (11.5-14.5); Red Blood Cell (RBC) Count 4.27 mill/uL (4.20-5.40); White Blood Cell (WBC) Count 7.7 thou/uL (4.8-10.8)
[2019-02-15 11:17] LABS: Bacteria/HPF 3+ HPF (None Seen); Bilirubin Negative (Negative); Blood, Urine Trace (Negative); Clarity Turbid (Clear); Glucose, Urine (Dipstick) Normal (Negative); Leukocyte 500 Leu/uL (Negative); Nitrite 2+ (Negative); Protein, Urine (Dipstick) 10 mg/dL (Neg-Trace); RBC/HPF 0-3 HPF (0-3); Squamous Epithelial 0-3 HPF (0-3); Transitional Epithelial 0-3 HPF (None Seen); Urobilinogen Normal mg/dL (Less than 2); WBC/HPF Greater than 50 HPF (0-3)
[2019-02-15 11:19] LABS: Pregnancy Test - Urine (BHCG) Negative (Negative); Pregu Control Background? CLEAR/WHITE (CLR/WHITE); Pregu Control Bar Appear? YES (CONTROL BAR); Specific Gravity 1.014 (1.002-1.036)
[2019-02-15 11:25] LABS: ALT (SGPT) 23 U/L (8-55); AST (SGOT) 24 U/L (5-34); Albumin 4.4 g/dL (3.4-4.8); Alkaline Phosphatase 72 U/L (40-150); Anion Gap 14 mmol/L (10-20); BUN (Urea Nitrogen) 11 mg/dL (9.8-20.1); Bilirubin, Total 0.7 mg/dL (0.2-1.2); CK (CPK) 95 U/L (29-168); Calc. Creatinine Clearance 0 mL/min (70-130); Calcium 10.2 mg/dL (7.8-10.44); Carbon Dioxide 28 mmol/L (23-31); Chloride 98 mmol/L (98-107); Estimated GFR-MDRD 67; Globulin 3.2 g/dL (2.4-3.5); Glucose 119 mg/dL (80-115); Potassium 3.2 mmol/L (3.5-5.1); Protein, Total 7.6 g/dL (6.0-8.3); Sodium 137 mmol/L (136-145)
[2019-02-15] MEDS ORDERED: cefTRIAXone\\ROCEPHIN 1 GM VIAL ONE (11:46)
--- NOTE | 2019-02-15 12:06 | RAD ---
PA AND LATERAL CHEST: HISTORY: Chest pain. COMPARISON: 09/22/2018 and 12/08/2017 FINDINGS: The heart size is normal. The lungs are well expanded without focal areas of consolidation, pneumoth oraces, or pleural effusion. There are degenerative changes in the spine. IMPRESSION: No radiographic evidence of acute cardiopulmonary process. POS: [facility]
== END 2019-02-15 13:42 | disposition home or self-care (01) ==
LOC: ERS 10:06
DX: N39.0 Urinary tract infection, site not specified (principal); M19.90 Unspecified osteoarthritis, unspecified site; E03.9 Hypothyroidism, unspecified; E78.5 Hyperlipidemia, unspecified; I10 Essential (primary) hypertension; F41.9 Anxiety disorder, unspecified; F32.9 Major depressive disorder, single episode, unspecified; Z87.891 Personal history of nicotine dependence; Z79.899 Other long term (current) drug therapy; Z79.82 Long term (current) use of aspirin
CPT/HCPCS: 71046; 80053; 81003; 81015; 81025; 82550; 84484; 85025; 93005; 96365; J0696

== ENCOUNTER 2019-02-17 21:18 | Observation (INO) | payer MEDICARE ==
[2019-02-17 21:42] LABS: #Basophils 0.1 thou/uL (0.0-0.2); #Eosinphils 0.1 thou/uL (0.0-0.7); #Lymphocytes 3.6 thou/uL (1.20-3.40); #Monocytes 1.1 thou/uL (0.11-0.59); %Basophils 0.6 % (0.0-1.0); %Eosinophils 1.1 % (0.0-10.0); %Lymphocytes 36.4 % (21.0-51.0); %Monocytes 11.2 % (0.0-10.0); %Neutrophils 50.7 % (42.0-75.0); Hemoglobin 12.1 g/dL (12.0-16.0); Mean Corpuscular HGB CONC 31.9 g/dL (32.0-36.0); Mean Corpuscular Hemoglobin 28.8 pg (27.0-31.0); Mean Corpuscular Volume 90.4 fL (78.0-98.0); Mean Platelet Volume 6.6 fL (7.4-10.4); Platelet Count 282 thou/uL (130-400); White Blood Cell (WBC) Count 9.8 thou/uL (4.8-10.8)
[2019-02-17 21:59] LABS: ALT (SGPT) 17 U/L (8-55); AST (SGOT) 20 U/L (5-34); Albumin 4.3 g/dL (3.4-4.8); Alkaline Phosphatase 64 U/L (40-150); Anion Gap 12 mmol/L (10-20); BUN (Urea Nitrogen) 11 mg/dL (9.8-20.1); Bilirubin, Total 0.8 mg/dL (0.2-1.2); Calc. Creatinine Clearance 0 mL/min (70-130); Calcium 9.9 mg/dL (7.8-10.44); Carbon Dioxide 29 mmol/L (23-31); Chloride 95 mmol/L (98-107); Estimated GFR-MDRD 65; Globulin 3.2 g/dL (2.4-3.5); Glucose 128 mg/dL (80-115); Protein, Total 7.5 g/dL (6.0-8.3); Sodium 133 mmol/L (136-145)
[2019-02-17 22:04] LABS: Potassium 2.8 mmol/L (3.5-5.1)
[2019-02-17] MEDS ORDERED: Ondansetron PF 4 MG/2 ML Vial ONE (22:28)
[2019-02-17] MEDS ORDERED: Potassium Chloride 10 MEQ in Premix Bag 1 BAG IVPB SCH (22:30)
--- NOTE | 2019-02-17 22:30 | CT ---
CT ABDOMEN AND PELVIS: 02/17/2019 HISTORY: Pain. COMPARISON: None. TECHNIQUE: Axial CT imaging at 5 mm intervals, from the lung bases through the pubic symphysis, without contrast . Coronal reformatted imaging obtained. FINDINGS: Lack of contrast limits assessment of the viscera, bowel, and vascular structures, and for lymphadeno gretchen. The imaged lung bases are unremarkable. Cholecystectomy clips are present. Limited assessment of the liver, spleen, pancreas, adrenal glands, and kidneys appears unremarkable. No nephrolithiasis or evidence of obstructive uropathy is appreciated on either side. Limited assessment of the bowel appears unremarkable. There is lower lumbar spine facet hypertrophy. No worrisome lytic or blastic bone lesion. Multilevel degenerative change noted within the lower thoracic spine and upper lumbar spine. IMPRESSION: No evidence for obstructive uropathy or nephrolithiasis. POS: [facility]
[2019-02-17 22:38] LABS: Bacteria/HPF None Seen HPF (None Seen); Bilirubin Negative (Negative); Blood, Urine Trace (Negative); Clarity Turbid (Clear); Glucose, Urine (Dipstick) Normal (Negative); Leukocyte 500 Leu/uL (Negative); Nitrite Negative (Negative); Protein, Urine (Dipstick) 20 mg/dL (Neg-Trace); Urobilinogen Normal mg/dL (Less than 2); WBC/HPF Greater than 50 HPF (0-3)
[2019-02-17 22:44] LABS: Transitional Epithelial 0-3 HPF (None Seen)
[2019-02-17 22:45] LABS: Unclassified Crystals None Seen HPF (None Seen); Yeast-Budding None Seen HPF (None Seen)
[2019-02-17] MEDS ORDERED: cefTRIAXone\\ROCEPHIN 1 GM VIAL ONE (23:26)
[2019-02-18] MEDS ORDERED: Ondansetron PF 4 MG/2 ML Vial IVP PRN (00:20)
[2019-02-18] MEDS ORDERED: Ondansetron ODT 4 MG TAB SL PRN (00:20)
[2019-02-18 00:27] VITALS: BMI 21.7
[2019-02-18] MEDS: Potassium Chloride 10 MEQ in Premix Bag 1 BAG IVPB SCH ×2 (01:11→01:20)
[2019-02-18] MEDS ORDERED: Acetaminophen 325 MG TAB PO PRN (01:21)
[2019-02-18] MEDS ORDERED: ALPRAZolam 0.5 MG TAB PO PRN (01:24)
[2019-02-18] MEDS ORDERED: Pramipexole Di-HCl 1 MG TAB PO SCH (01:45)
[2019-02-18] MEDS ORDERED: Melatonin 3 MG TAB PO SCH ×2 (01:45→21:00)
[2019-02-18] MEDS: Sodium Chloride 0.9% 1,000 ML IV SCH ×2 (01:51→15:36)
--- NOTE | 2019-02-18 02:54 | HP ---
CHIEF COMPLAINT: Nausea and vomiting. HISTORY OF PRESENT ILLNESS: Ms. Rivera is a 68-year-old female with past medical history significant for hypertension, hyperlipidemia, anxiety, depression, restless legs syndrome, hypothyroidism, who presented to the emergency department with complaints of nausea and vomiting. Several days ago, the patient did present to the ER with complaints of weakness, fatigue, and feeling sluggish. She reports that she felt as if she did not have very much energy. At that time, she was diagnosed with the UTI and given Macrobid. However, soon after, the patient developed some nausea and vomiting, and was unable to keep her oral antibiotics down. Her symptoms continued to worsen until she came back to the ED for further evaluation and treatment. On arrival back to the ER, lab work was significant for a potassium level of 2.8. Her urinalysis did indeed again show positive leukocyte esterase, WBC. She was admitted to the hospital service for IV antibiotics, antiemetics, and repletion of her potassium. REVIEW OF SYSTEMS: A 12-point review of systems was performed. The patient denies any chest pain or shortness of breath. She denies any fever, but does report some chills. She denies any diarrhea, shortness of breath, chest pain, or abdominal pain. No congestion. She has had some urinary frequency, no blood or dysuria. ALLERGIES: CODEINE AND LATEX. HOME MEDICATIONS: 1. Xanax 0.5 mg p.o. q.8 hours p.r.n. 2. Aspirin 81 mg daily. 3. Biotin 1000 mcg tablet one daily. 4. Vitamin D3 1000 unit capsule one daily. 5. Cymbalta 60 mg tablet one daily. 6. Levothyroxine 50 mg tablet 1 tablet p.o. daily. 7. Melatonin 5 mg p.o. at bedtime. 8. Metoprolol tartrate 25 mg p.o. daily. 9. Sublingual nitroglycerin 0.4 mg sublingual q.5 minutes p.r.n. chest pain. 10. Oxybutynin chloride 10 mg tablet one tablet p.o. daily. 11. Pantoprazole 40 mg tablet 1 tablet p.o. daily. 12. Pramipexole 1 mg tablet 1 tablet p.o. b.i.d. 13. Crestor 10 mg p.o. at bedtime. 14. Tramadol 50 mg tablet 1-2 tabs p.o. q.6 hours p.r.n. pain. PAST MEDICAL HISTORY: The patient has a history of hypertension, hyperlipidemia, restless legs syndrome, hypothyroidism, anxiety, and depression. She has some chronic arthritic pain in her back, along with a "pinched nerve." PAST SURGICAL HISTORY: Appendectomy, cholecystectomy, hysterectomy, bladder sling, orthopedic procedures, which include a right shoulder arthroplasty and right hand surgery. SOCIAL HISTORY: The patient denies any alcohol use or illicit drug use. She has a very remote history of smoking cigarettes in her high school years. She lives with her son and [id number] and their children, who are 11 and 17 years old. Code status is full code. FAMILY HISTORY: Not pertinent to this visit. PHYSICAL EXAMINATION: VITAL SIGNS: Temperature 98.8, pulse is 78, respirations are 16, O2 saturation is 100% on room air, blood pressure 145/69. GENERAL: The patient is a thin elderly female, resting comfortably in bed, in no acute distress. HEENT: Head is atraumatic and normocephalic. Mucous membranes are moist. NECK: Trachea is midline. No JVD. No carotid bruits. CV: S1 and S2. Regular rate and rhythm. No appreciable murmurs, rubs, or gallops. LUNGS: Regular respiratory rate and pattern. Clear to auscultation bilaterally. ABDOMEN: Positive bowel sounds. Soft, nontender. EXTREMITIES: No edema. Both lower extremities are warm and well perfused. NEUROLOGIC: Cranial nerves 2 through 12 are grossly intact. The patient is nonfocal. PSYCHIATRIC: Alert and oriented x3. Appropriate mood and affect. LABORATORY DATA: White blood cell count 9.8, hemoglobin 12.1, hematocrit 37.9, platelets are 282. Sodium 133, potassium 2.8, chloride 95, BUN is 11, carbon dioxide 29, creatinine 0.86. AST, ALT, alkaline phosphatase all within normal limits. Urinalysis shows leukocyte esterase, white blood cell. ASSESSMENT: 1. Urinary tract infection. 2. Nausea and vomiting, likely secondary to above with resulting hypokalemia. 3. Hypokalemia with a level of 2.8 at presentation. 4. Hypertension. 5. Hyperlipidemia. 6. Hypothyroidism. 7. Anxiety and depression. 8. Restless legs syndrome. PLAN: At this time, we will continue supportive care with antiemetics, fluid resuscitation and IV antibiotics. Her urine has been sent for culture. We will obtain a postvoid bladder scan to rule out urinary retention. Given her nausea and vomiting, we will also obtain a lipase level as well. Future recommendations based on the patient's hospital course and response to treatment. We will also continue her home medications. SCDs for DVT prophylaxis and she will be placed on GI prophylaxis as well. Job ID: [id number]
[2019-02-18] MEDS: Levothyroxine Sodium 50 MCG TAB PO SCH (03:48)
[2019-02-18 04:37] LABS: #Basophils 0.1 thou/uL (0.0-0.2); #Eosinphils 0.1 thou/uL (0.0-0.7); #Lymphocytes 2.6 thou/uL (1.20-3.40); #Neutrophils 3.5 thou/uL (1.40-6.50); %Basophils 0.8 % (0.0-1.0); %Lymphocytes 35.7 % (21.0-51.0); %Neutrophils 47.6 % (42.0-75.0); Hemoglobin 10.8 g/dL (12.0-16.0); Mean Corpuscular Hemoglobin 29.1 pg (27.0-31.0); Mean Corpuscular Volume 91.1 fL (78.0-98.0); Platelet Count 236 thou/uL (130-400); RBC Distribution Width 12.9 % (11.5-14.5); Red Blood Cell (RBC) Count 3.73 mill/uL (4.20-5.40); White Blood Cell (WBC) Count 7.4 thou/uL (4.8-10.8)
[2019-02-18 04:50] LABS: Anion Gap 10 mmol/L (10-20); BUN (Urea Nitrogen) 9 mg/dL (9.8-20.1); Calc. Creatinine Clearance 63 mL/min (70-130); Calcium 9.2 mg/dL (7.8-10.44); Carbon Dioxide 30 mmol/L (23-31); Chloride 101 mmol/L (98-107); Estimated GFR-MDRD 73; Glucose 114 mg/dL (80-115); Lipase 17 U/L (8-78); Potassium 3.1 mmol/L (3.5-5.1); Sodium 138 mmol/L (136-145)
--- NOTE | 2019-02-18 08:06 | PDOC.EVN ---
Event Note - Event Note Event Note: Patient admitted early this morning. She reports feeling better. Denies any more nausea or vomiting. Potassium still low this morning, will check a magnesium level and replace as needed. Continue IV abx for now and await urine culture result. Patient likely discharged tomorrow once culture results and potassium improved.
[2019-02-18] MEDS: Potassium Chloride 20 MEQ TAB PO SCH ×2 (08:30→12:16)
[2019-02-18] MEDS: DULoxetine 60 MG CAP PO SCH (08:31)
[2019-02-18] MEDS: Metoprolol Tartrate 25 MG TAB PO SCH (08:31)
[2019-02-18] MEDS: Oxybutynin ER 5 MG TAB PO SCH (08:31)
[2019-02-18] MEDS: Pramipexole Di-HCl 1 MG TAB PO SCH ×2 (08:31→20:22)
[2019-02-18] MEDS: Aspirin 81 mg Enteric Coated Tablet PO SCH (08:31)
[2019-02-18] MEDS ORDERED: Famotidine/PF 20 mg/2ml Vial SLOW IVP SCH (09:00)
[2019-02-18] MEDS ORDERED: cefTRIAXone\\ROCEPHIN 1 GM in Sodium Chloride 0.9% 100 ML IVPB SCH (09:00)
[2019-02-18] MEDS ORDERED: Rosuvastatin 10 MG TAB PO SCH (21:00)
[2019-02-19] MEDS: Sodium Chloride 0.9% 1,000 ML IV SCH (01:21)
[2019-02-19] MEDS: Levothyroxine Sodium 50 MCG TAB PO SCH (04:45)
[2019-02-19 08:27] VITALS: BP 120/65; TEMP 98.9
[2019-02-19] MEDS: Pramipexole Di-HCl 1 MG TAB PO SCH (08:59)
[2019-02-19] MEDS: Oxybutynin ER 5 MG TAB PO SCH (08:59)
[2019-02-19] MEDS: Metoprolol Tartrate 25 MG TAB PO SCH (08:59)
[2019-02-19] MEDS: DULoxetine 60 MG CAP PO SCH (08:59)
[2019-02-19] MEDS: Aspirin 81 mg Enteric Coated Tablet PO SCH (08:59)
[2019-02-19 09:17] LABS: #Basophils 0.1 thou/uL (0.0-0.2); #Eosinphils 0.2 thou/uL (0.0-0.7); #Lymphocytes 1.8 thou/uL (1.20-3.40); #Monocytes 0.6 thou/uL (0.11-0.59); #Neutrophils 3.9 thou/uL (1.40-6.50); %Basophils 0.9 % (0.0-1.0); %Eosinophils 3.2 % (0.0-10.0); %Lymphocytes 27.1 % (21.0-51.0); %Monocytes 8.8 % (0.0-10.0); Hemoglobin 11.1 g/dL (12.0-16.0); Mean Corpuscular HGB CONC 32.8 g/dL (32.0-36.0); Mean Corpuscular Volume 91.4 fL (78.0-98.0); Mean Platelet Volume 6.8 fL (7.4-10.4); Platelet Count 217 thou/uL (130-400); RBC Distribution Width 12.9 % (11.5-14.5); Red Blood Cell (RBC) Count 3.72 mill/uL (4.20-5.40); White Blood Cell (WBC) Count 6.5 thou/uL (4.8-10.8)
[2019-02-19 09:50] LABS: Anion Gap 11 mmol/L (10-20); BUN (Urea Nitrogen) 8 mg/dL (9.8-20.1); Calc. Creatinine Clearance 75 mL/min (70-130); Calcium 9.3 mg/dL (7.8-10.44); Carbon Dioxide 26 mmol/L (23-31); Chloride 105 mmol/L (98-107); Estimated GFR-MDRD 83; Glucose 139 mg/dL (80-115); Potassium 3.6 mmol/L (3.5-5.1); Sodium 138 mmol/L (136-145)
== END 2019-02-19 10:22 | disposition home or self-care (01) ==
LOC: ERS 21:18 → 2SW 23:01
PROVIDERS: ADMIT Hospitalist; ATTEND Hospitalist
DX: N39.0 Urinary tract infection, site not specified (principal); R11.2 Nausea with vomiting, unspecified; E87.6 Hypokalemia; I10 Essential (primary) hypertension; E78.5 Hyperlipidemia, unspecified; E03.9 Hypothyroidism, unspecified; F41.9 Anxiety disorder, unspecified; F32.9 Major depressive disorder, single episode, unspecified; G25.81 Restless legs syndrome; M19.90 Unspecified osteoarthritis, unspecified site; Z87.891 Personal history of nicotine dependence; Z88.5 Allergy status to narcotic agent; Z91.040 Latex allergy status; Z79.82 Long term (current) use of aspirin; Z79.899 Other long term (current) drug therapy
CPT/HCPCS: 74176; 80048 ×2; 80053; 83690; 83735; 85025 ×3; 87086; 93005; 96361 ×2; 96365; 96366; 96367; 96375; 97139; 99285; G0378 ×3; 36415; 81003; 81015; J0696; J2405; J3480; J3490

== ENCOUNTER 2019-06-27 18:35 | Observation (INO) | payer MEDICARE ==
[~2019-06-27 18:35] MED LIST changes: -ISOVUE-370 76%-LOCM 1 ML ONE; +Iopamidol 370 76% 100 ML VIAL ONE
[2019-06-27 19:08] LABS: Bilirubin Negative (Negative); Blood, Urine Negative (Negative); Clarity Turbid (Clear); Glucose, Urine (Dipstick) Normal (Negative); Leukocyte 500 Leu/uL (Negative); Nitrite 2+ (Negative); Protein, Urine (Dipstick) Negative (Neg-Trace); RBC/HPF 0-3 HPF (0-3); Squamous Epithelial 0-3 HPF (0-3); Urobilinogen Normal mg/dL (Less than 2)
[2019-06-27 19:10] LABS: #Basophils 0.1 thou/uL (0.0-0.2); #Eosinphils 0.6 thou/uL (0.0-0.7); #Lymphocytes 3.2 thou/uL (1.20-3.40); #Monocytes 0.7 thou/uL (0.11-0.59); #Neutrophils 2.9 thou/uL (1.40-6.50); %Basophils 1.2 % (0.0-1.0); %Eosinophils 7.4 % (0.0-10.0); %Monocytes 9.8 % (0.0-10.0); %Neutrophils 38.7 % (42.0-75.0); Hemoglobin 11.8 g/dL (12.0-16.0); Mean Corpuscular HGB CONC 32.3 g/dL (32.0-36.0); Mean Corpuscular Hemoglobin 29.4 pg (27.0-31.0); Mean Platelet Volume 6.9 fL (7.4-10.4); Platelet Count 268 thou/uL (130-400); RBC Distribution Width 12.1 % (11.5-14.5); Red Blood Cell (RBC) Count 4.02 mill/uL (4.20-5.40); White Blood Cell (WBC) Count 7.5 thou/uL (4.8-10.8)
[2019-06-27 19:21] LABS: Bacteria/HPF 4+ HPF (None Seen)
--- NOTE | 2019-06-27 19:24 | RAD ---
RADIOGRAPH CHEST 1 VIEW: DATE: 06/27/2019 HISTORY: 68-year-old female with chest pain FINDINGS: There are no airspace densities, pulmonary edema, pneumothorax, or cardiomegaly. The lateral costophr enic angles are sharp. IMPRESSION: No acute cardiopulmonary findings.
[2019-06-27] MEDS ORDERED: Aspirin Chewable 81 MG TAB ONE (19:28)
[2019-06-27 19:31] LABS: ALT (SGPT) 16 U/L (8-55); AST (SGOT) 21 U/L (5-34); Alkaline Phosphatase 80 U/L (40-110); Anion Gap 11 mmol/L (10-20); BUN (Urea Nitrogen) 9 mg/dL (9.8-20.1); Bilirubin, Total 0.3 mg/dL (0.2-1.2); CK (CPK) 131 U/L (29-168); Calc. Creatinine Clearance 0 mL/min (70-130); Calcium 9.2 mg/dL (7.8-10.44); Carbon Dioxide 32 mmol/L (23-31); Chloride 99 mmol/L (98-107); Estimated GFR-MDRD 64; Globulin 3.1 g/dL (2.4-3.5); Glucose 90 mg/dL (80-115); Lipase 30 U/L (8-78); Potassium 3.3 mmol/L (3.5-5.1); Protein, Total 7.1 g/dL (6.0-8.3); Sodium 139 mmol/L (136-145)
[2019-06-27] MEDS ORDERED: cefTRIAXone\\ROCEPHIN 1 GM VIAL ONE (20:06)
[2019-06-27] MEDS ORDERED: Nitroglycerin 0.4 MG TAB (25 Tab Bottle) PO PRN (20:07)
--- NOTE | 2019-06-27 21:07 | CT ---
CT ANGIOGRAM THORAX WITH CONTRAST: (CTA pulmonary angiogram) DATE: 06/27/2019 HISTORY: 68-year-old female with chest pain TECHNIQUE: IV injection of iodinated contrast. Scan acquisition timing attempted to coincide with iodinated contrast bolus reaching maximal density in pulmonary arteries. 3-D MIP reconstructions. FINDINGS: Pulmonary thromboembolism: None. Lungs: Several foci of subsegmental atelectasis at right middle lobe, lingula, and posterior bases of bilateral lower lobes. Pneumothorax: None. Pleural effusion: None. Thoracic aorta: No aneurysm or dissection. Mediastinum: No lymphadenopathy or other mass. Dayan: No lymphadenopathy or other mass. Heart: No cardiomegaly. No pericardial effusion. IMPRESSION: 1. No pulmonary thromboembolism. 2. Multifocal bilateral subsegmental atelectasis. 3. Otherwise negative.
[2019-06-27 22:17] VITALS: BMI 22.8
[2019-06-27 22:54] LABS: Troponin I Less than 0.010 ng/mL (< 0.028)
[2019-06-27] MEDS ORDERED: Nitroglycerin 0.4 MG TAB (25 Tab Bottle) SL PRN (22:56)
[2019-06-27] MEDS ORDERED: traMADol HCl 50 MG TAB PO PRN (22:56)
[2019-06-27] MEDS ORDERED: ALPRAZolam 0.5 MG TAB PO PRN (22:56)
[2019-06-27] MEDS ORDERED: Metoprolol Tartrate 25 MG TAB PO SCH (23:15)
[2019-06-27] MEDS ORDERED: Pramipexole Di-HCl 1 MG TAB PO SCH (23:15)
[2019-06-27] MEDS ORDERED: Rosuvastatin 10 MG TAB PO SCH (23:15)
[2019-06-27] MEDS ORDERED: Melatonin 3 MG TAB PO SCH (23:15)
[2019-06-28] MEDS ORDERED: Potassium Chloride 20 MEQ TAB PO SCH ×3 (00:30→14:00)
--- NOTE | 2019-06-28 01:21 | HP ---
PRIMARY CARE PHYSICIAN: Dr. Mills. CHIEF COMPLAINT: Chest pain. HISTORY OF PRESENT ILLNESS: Ms. Rivera is a very pleasant 68-year-old female who reported to the emergency room today after experiencing substernal chest pain. Reports that it radiated down her left arm. She denied any diaphoresis or any nausea. Reports that she took 2 nitroglycerins, which did not help her symptoms. Reports that she has had a heart catheterization in the past with Dr. Collins, but has not seen him in quite some time. Denies any cardiac workup in at least the past year. She did have a stress test in August 2017, which showed an EF of 81%, did not show any reversible defects. In the emergency room today, she had troponin x2 undetectable, potassium of 3.3, carbon dioxide 32, BUN 9; other chemistry was unremarkable; urine turbid, 2+ nitrites, leukocyte esterase, white blood cells, and 4+ bacteria; this has been cultured. The patient received some Rocephin IV piggyback while in the emergency room. Hematology; white blood cell count 7.5, hemoglobin 11.8, hematocrit is 36.5, and platelet count is 268. EKG in the emergency room shows normal sinus rhythm, beats per minute 67, axis left, no ectopics. Had a CTA that showed no pulmonary emboli, multifocal bilateral subsegmental atelectasis, otherwise negative and the patient admitted to the observation unit for further management. PAST MEDICAL HISTORY: Pertinent for hypertension, hyperlipidemia, restless legs syndrome, hypothyroidism, anxiety, depression, has some chronic arthritic pain in her back. PAST SURGICAL HISTORY: Appendectomy, cholecystectomy, hysterectomy, bladder sling, orthopedic procedures including a right shoulder arthroplasty, right hand surgery. SOCIAL HISTORY: Denies any alcohol or drug use. Has a very remote history of cigarettes when she was in high school. Lives with her son and [id number]. She is a full code. Son is very good decision maker. FAMILY HISTORY: Noncontributory. REVIEW OF SYSTEMS: The patient reports some chest pain, radiation. Denied any diaphoresis or shortness of breath. Denies any fever or chills. Denies any abdominal pain, nausea, vomiting, or diarrhea. All systems are reviewed and are negative unless mentioned in the HPI or above. KNOWN ALLERGIES: Codeine, latex. HOME MEDICATIONS: 1. Xanax 0.5 mg p.o. q.8 hours as needed. 2. Aspirin 81 mg p.o. daily. 3. Biotin 1000 mcg p.o. daily. 4. Cymbalta 60 mg p.o. daily. 5. Levothyroxine 50 mcg p.o. daily. 6. Melatonin 5 mg p.o. at bedtime. 7. Lopressor 25 mg p.o. b.i.d. 8. Nitrostat 0.4 mg sublingual q.5 minutes as needed. 9. Ditropan 10 mg 1 tab p.o. daily. 10. Protonix 40 mg p.o. b.i.d. 11. Pramipexole 1 mg p.o. b.i.d. 12. Crestor 10 mg p.o. at bedtime. 13. Tramadol 1-2 tabs q.6 hours as needed. PHYSICAL EXAMINATION: VITAL SIGNS: Blood pressure 128/64, pulse is 66, respirations 19, temperature is 98.4, pO2 sats are 100% on room air. CONSTITUTIONAL: The patient is nontoxic appearing. She is alert and oriented to person, place and time. HEAD: Atraumatic and normocephalic. EYES: Pupils are equal, round, and reactive to light. Eyelids are normal to inspection. ENT: Mouth exam is normal. Mucous membranes are moist. NECK: Normal range of motion. Trachea is midline. RESPIRATORY/CHEST: Breath sounds are clear. Chest expansion is equal. CARDIOVASCULAR: Regular rate and rhythm. Heart sounds are normal. ABDOMEN: Nontender. Bowel sounds are heard. BACK: Normal range of motion. Normal inspection. EXTREMITIES: Upper extremity; normal range of motion. Motor strength is normal. Radial pulses are normal. Lower extremity; normal range of motion. Motor strength is normal. Pulses are normal. NEURO: The patient is oriented to person, place, and time. There is no focal motor or sensory deficits. SKIN: Warm, dry, normal color of that is visualized. PSYCH: Normal affect. ASSESSMENT AND PLAN: 1. Chest pain. Stress test, fasting lipids, aspirin 325 mg p.o. daily. Troponins will be trended. 2. Hypokalemia. Potassium 40 mEq p.o. x1 has been ordered. We will recheck in the morning. 3. History of hypothyroidism. Restart home medications. We will check a fasting TSH in the morning. 4. History of hyperlipidemia. Test fasting lipids. We will restart home medication. 5. Urinary tract infection. Urine culture has been ordered. 6. Gastrointestinal and deep venous thrombosis prophylaxis have been started. Case discussed Dr. Caldwell, who agrees to plan. 7. Hospital course dependent on clinical findings. Job ID: [id number]
[2019-06-28 01:54] LABS: Troponin I Less than 0.010 ng/mL (< 0.028)
[2019-06-28 05:04] LABS: Cardiac Risk 2.4 (Less than 4.5)
[2019-06-28 05:23] LABS: Free T4 (Free Thyroxine) 0.85 ng/dL (0.70-1.48); Thyroid Stimulating Hormone 1.2791 uIU/mL (0.35-4.94)
[2019-06-28] MEDS ORDERED: Levothyroxine Sodium 50 MCG TAB PO SCH (06:00)
[2019-06-28 08:09] LABS: Anion Gap 7 mmol/L (10-20); BUN (Urea Nitrogen) 10 mg/dL (9.8-20.1); Calc. Creatinine Clearance 63 mL/min (70-130); Calcium 9.1 mg/dL (7.8-10.44); Carbon Dioxide 33 mmol/L (23-31); Chloride 103 mmol/L (98-107); Estimated GFR-MDRD 69; Glucose 114 mg/dL (80-115); Magnesium 2.2 mg/dL (1.6-2.6); Potassium 3.4 mmol/L (3.5-5.1); Sodium 140 mmol/L (136-145)
[2019-06-28] MEDS ORDERED: Pramipexole Di-HCl 1 MG TAB PO SCH (09:00)
[2019-06-28] MEDS ORDERED: Enoxaparin Sodium 40 MG/0.4 ML SYRINGE SC SCH (09:00)
[2019-06-28] MEDS ORDERED: Aspirin 81 mg Enteric Coated Tablet PO SCH ×2 (09:00)
[2019-06-28] MEDS ORDERED: Metoprolol Tartrate 25 MG TAB PO SCH (09:00)
[2019-06-28] MEDS ORDERED: ADENOSINE 60 MG/20 ML VIAL ONE (11:04)
[2019-06-28 12:35] VITALS: BP 124/64; TEMP 98.4
--- NOTE | 2019-06-28 12:36 | NM ---
MYOCARDIAL PERFUSION SCAN: The patient was given 30 mCi of Technetium sestamibi for stress imaging and 10 mCi for rest imaging. INDICATION: Chest pain. FINDINGS: The patient was stressed according to adenosine protocol. The left ventricle was imaged with SPECT i maging. CT attenuation correction images obtained. FINDINGS: Normal activity is seen throughout the left ventricle on stress and rest images. There is thinning i n the apex which his symmetric. There is no evidence of reversible ischemia. Wall motion appears normal. Ejection fraction recorded at 80%. IMPRESSION: No evidence of reversible ischemia. POS: OFF
[2019-06-28] MEDS ORDERED: cefTRIAXone\\ROCEPHIN 1 GM in Sodium Chloride 0.9% 100 ML IVPB SCH (18:00)
[2019-06-28] MEDS ORDERED: Rosuvastatin 10 MG TAB PO SCH (21:00)
[2019-06-28] MEDS ORDERED: Melatonin 3 MG TAB PO SCH (21:00)
--- NOTE | 2019-06-28 22:43 | DIS ---
DATE OF ADMISSION: 06/27/2019 DATE OF DISCHARGE: 06/28/2019 PRIMARY CARE PHYSICIAN: Pedro Luis Mills MD. DISCHARGE DIAGNOSES: 1. Atypical chest pain. 2. Hypokalemia. 3. Hypothyroidism. 4. Hyperlipidemia. 5. Urinary tract infection. HOSPITAL COURSE: A 68-year-old female admitted with acute onset of chest pain radiating to the left upper extremity. Acute myocardial infarction was ruled out with serial troponin. Acute PE also was ruled out with CT angio chest. The patient subsequently was further risk stratified with nuclear stress test which was negative for reversible ischemia. The patient's symptoms resolved and was subsequently discharged home. during this hospitalization, the patient also was found to have hypokalemia which was treated with oral potassium supplementation. The patient also was found to have E coli urinary tract infection and was treated initially with IV Rocephin which was transitioned to oral amoxicillin on discharge. PHYSICAL EXAMINATION: VITAL SIGNS: Temperature 98.4, pulse 62, respiratory rate 20, SpO2 of 99% on room air, blood pressure is 124/64. GENERAL: Elderly female, in no distress. Afebrile. Anicteric. Acyanotic. HEENT: Normocephalic, atraumatic. Oral mucosa is moist. CARDIOVASCULAR: Regular rhythm and rate with normal heart sounds 1 and 2. RESPIRATORY: Fair air entry bilaterally with no crackle or rhonchi or use of accessory muscles. GI: Full, soft, nontender, nondistended with normal bowel sounds. EXTREMITIES: Grossly normal looking, atraumatic with no edema or erythema. GEOGRAPHY DEPARTMENT CHAIR: Conscious, alert, oriented x3 with appropriate mental status. DISCHARGE CONDITION: Improved. DISCHARGE DISPOSITION: Home. FOLLOWUP: 1. With PCP in 7 days. 2. With regular bottle feeder in 4 weeks. DISCHARGE MEDICATIONS: Please see discharge med rec. Only new medication will be amoxicillin 500 mg p.o. b.i.d. for 5 days. The patient's usual home medications were restarted at discharge with no change. Job ID: [id number]
== END 2019-06-28 14:29 | disposition home or self-care (01) ==
LOC: ERS 18:35 → 2SW 22:01
PROVIDERS: ADMIT Internal Medicine; ATTEND Internal Medicine
DX: R07.89 Other chest pain (principal); E87.6 Hypokalemia; E03.9 Hypothyroidism, unspecified; E78.5 Hyperlipidemia, unspecified; N39.0 Urinary tract infection, site not specified; I10 Essential (primary) hypertension; F41.9 Anxiety disorder, unspecified; F32.9 Major depressive disorder, single episode, unspecified; G25.81 Restless legs syndrome; M19.90 Unspecified osteoarthritis, unspecified site; Z87.891 Personal history of nicotine dependence; Z79.82 Long term (current) use of aspirin; Z79.899 Other long term (current) drug therapy; Z88.5 Allergy status to narcotic agent; Z91.040 Latex allergy status
CPT/HCPCS: 71045; 71275; 78452; 80048; 80053; 80061; 82550; 83690; 83735; 84439; 84443; 84484 ×3; 85025; 85379; 87077; 87086; 87186; 93005; 93017; 94760; 96365; 99285; A9500; G0378 ×3; 36415; 81003; 81015; J0153; J0696; Q9967

== ENCOUNTER 2020-08-11 19:19 | Emergency (ER) | payer MEDICARE ==
--- NOTE | 2020-08-11 21:06 | CT ---
Chest CT without contrast: 08/11/2020 COMPARISON: None HISTORY: Back pain, right-sided rib pain, recent fall TECHNIQUE: Axial CT imaging at 5 mm intervals from the thoracic inlet through the upper abdomen witho ut contrast. Coronal and sagittal reformatted imaging obtained. FINDINGS: Evaluation of the imaged viscera, the vascular structures, and for lymphadenopathy is limit ed on noncontrast enhanced imaging. Upper abdomen demonstrates cholecystectomy clips. No pleural, pericardial, or mediastinal fluid. Limited assessment of the chest for lymphadenopathy appears unrema rkable. No acute fracture of the manubrium or sternum is noted. There is multilevel degenerative change invol ving the mid and lower thoracic spine with disc space narrowing, anterior osteophyte formation, and vacuum disc formation. No pneumothorax is seen on either side. Mild linear density in the right middle lobe noted suggesting scar and/or volume loss. No discrete/do minant pulmonary parenchymal mass lesion/nodule is noted on either side. The patient is status post rotator cuff surgery on the right. There is no evidence for a displaced rib fracture on either side. IMPRESSION: Incidental findings as detailed above. No acute findings are seen within the chest.
--- NOTE | 2020-08-11 21:09 | CT ---
CT lumbar spine without contrast: 08/11/2020 HISTORY: Fall, trauma, pain TECHNIQUE: Axial CT imaging at 2.5 mm intervals through the lumbar spine with coronal and sagittal re formatted imaging FINDINGS: Evaluation for central canal and/or neural foraminal stenosis is limited on routine CT. Cho lecystectomy clips are present. Lumbar vertebral body height and alignment appears within normal limits. There is multilevel disc spa ce narrowing and degenerative endplate change within the lumbar spine, most prominent at the L1-2 level and the L5-S1 level. Vacuum disc formation is noted at the T11-12, L1-2, and L5-S1 levels. Ther e is multilevel lower lumbar spine facet hypertrophy, most prominent at the L5-S1 level. Bilateral L5-S1 neural foraminal stenosis is noted. No osseous cause of significant central canal stenosis. No displaced fracture or dislocation is seen within the lumbar spine. There is degenerative change involving bilateral sacroiliac joints. IMPRESSION: Degenerative change within the lumbar spine. No acute fracture or dislocation.
== END 2020-08-11 21:42 | disposition home or self-care (01) ==
LOC: ERS 19:19
DX: S39.012A Strain of muscle, fascia and tendon of lower back, initial encounter (principal); S20.211A Contusion of right front wall of thorax, initial encounter; I10 Essential (primary) hypertension; M19.90 Unspecified osteoarthritis, unspecified site; E03.9 Hypothyroidism, unspecified; E78.5 Hyperlipidemia, unspecified; E78.00 Pure hypercholesterolemia, unspecified; Z87.891 Personal history of nicotine dependence; W00.0XXA Fall on same level due to ice and snow, initial encounter
CPT/HCPCS: 71250; 72131

== ENCOUNTER 2020-10-22 09:50 | Outpatient (CLI) | payer MEDICARE | END 2020-10-22 09:51 | disposition home or self-care (01) | LOC: BICMRI 09:50 | PROVIDERS: ATTEND Internal Medicine | DX: R20.0 Anesthesia of skin (principal); R44.3 Hallucinations, unspecified; I67.82 Cerebral ischemia | CPT/HCPCS: 70551 ==

== ENCOUNTER 2021-04-11 15:51 | Emergency (ER) | payer MEDICARE ==
[2021-04-11] MEDS ORDERED: Ondansetron ODT 4 MG TAB ONE (16:31)
== END 2021-04-11 17:11 | disposition home or self-care (01) ==
LOC: ERS 15:51
DX: J20.9 Acute bronchitis, unspecified (principal); R05 Cough; E03.9 Hypothyroidism, unspecified; E78.5 Hyperlipidemia, unspecified; E78.00 Pure hypercholesterolemia, unspecified; I10 Essential (primary) hypertension; Z87.891 Personal history of nicotine dependence
CPT/HCPCS: 71045; Q0162

== ENCOUNTER 2021-12-02 19:45 | Emergency (ER) | payer MEDICARE ==
[2021-12-02] MEDS ORDERED: Metoclopramide HCl 10 MG/2 ML VIAL ONE (20:34)
[2021-12-02] MEDS ORDERED: Ketorolac Tromethamine 30 MG/ML VIAL ONE ×2 (20:34→20:58)
[2021-12-02] MEDS ORDERED: diphenhydrAMINE 50 MG/ML VIAL ONE ×2 (20:34→20:59)
[2021-12-02] MEDS ORDERED: diphenhydrAMINE 25 MG CAP ONE (20:57)
[2021-12-02 22:14] LABS: SARS-CoV-2 NAA Rapid Test Not Detected (NotDetected)
== END 2021-12-02 22:10 | disposition home or self-care (01) ==
LOC: ERS 19:45
DX: J18.9 Pneumonia, unspecified organism (principal); E03.9 Hypothyroidism, unspecified; E78.5 Hyperlipidemia, unspecified; E78.00 Pure hypercholesterolemia, unspecified; I10 Essential (primary) hypertension; Z87.891 Personal history of nicotine dependence; Z20.822 Contact with and (suspected) exposure to COVID-19
CPT/HCPCS: 0240U; 71045; 93005; 96372; J1200; J1885; J2765

== ENCOUNTER 2021-12-12 12:24 | Emergency (ER) | payer MEDICARE ==
[2021-12-12] MEDS ORDERED: Ketorolac Tromethamine 30 MG/ML VIAL ONE (12:49)
[2021-12-12] MEDS ORDERED: Orphenadrine Citrate 60 MG/2 ML VIAL IM SCH (13:00)
== END 2021-12-12 14:19 | disposition home or self-care (01) ==
LOC: ERS 12:24
DX: S16.1XXA Strain of muscle, fascia and tendon at neck level, initial encounter (principal); I10 Essential (primary) hypertension; M19.90 Unspecified osteoarthritis, unspecified site; E78.00 Pure hypercholesterolemia, unspecified; Z79.890 Hormone replacement therapy; Z79.51 Long term (current) use of inhaled steroids; Z79.899 Other long term (current) drug therapy; Z87.891 Personal history of nicotine dependence; X58.XXXA Exposure to other specified factors, initial encounter
CPT/HCPCS: 96372; 99283; J1885; J2360

== ENCOUNTER 2022-05-03 19:44 | Emergency (ER) | payer OTHER, MEDICARE ==
[2022-05-03] MEDS ORDERED: Acetaminophen 500 MG TAB ONE (21:16)
[2022-05-03] MEDS ORDERED: Ketorolac Tromethamine 30 MG/ML VIAL ONE (22:25)
== END 2022-05-03 22:45 | disposition home or self-care (01) ==
LOC: ERS 19:44
DX: S16.1XXA Strain of muscle, fascia and tendon at neck level, initial encounter (principal); I10 Essential (primary) hypertension; E78.00 Pure hypercholesterolemia, unspecified; Z87.891 Personal history of nicotine dependence; W01.0XXA Fall on same level from slipping, tripping and stumbling without subsequent striking against object, initial encounter
CPT/HCPCS: 70450; 72125; 96372; J1885

== ENCOUNTER 2022-08-17 16:55 | Emergency (ER) | payer MEDICARE ==
[2022-08-17 20:21] LABS: #Basophils 0.1 thou/uL (0.0-0.2); #Eosinphils 0.3 thou/uL (0.0-0.7); #Lymphocytes 2.6 thou/uL (1.20-3.40); #Monocytes 0.7 thou/uL (0.11-0.59); #Neutrophils 4.1 thou/uL (1.40-6.50); %Basophils 1.1 % (0.0-1.0); %Eosinophils 3.9 % (0.0-10.0); %Lymphocytes 33.6 % (21.0-51.0); %Monocytes 8.8 % (0.0-10.0); %Neutrophils 52.5 % (42.0-75.0); Hemoglobin 12.2 g/dL (12.0-16.0); Mean Corpuscular HGB CONC 33.4 g/dL (32.0-36.0); Mean Corpuscular Volume 92.7 fl (78.0-98.0); Mean Platelet Volume 6.9 fL (7.4-10.4); Platelet Count 250 10x3/uL (130-400); Red Blood Cell (RBC) Count 3.94 mill/uL (4.20-5.40); White Blood Cell (WBC) Count 7.8 10x3/uL (4.8-10.8)
[2022-08-17 20:25] LABS: Bilirubin Negative (Negative); Blood, Urine Trace (Negative); Clarity Turbid (Clear); Glucose, Urine (Dipstick) Normal (Negative); Ketone, Urine Negative (Negative); Leukocyte Negative Leu/uL (Negative); Nitrite Negative (Negative); Protein, Urine (Dipstick) Negative (Neg-Trace); RBC/HPF 0-3 HPF (0-3); Specific Gravity, Urine 1.014 (1.002-1.036); Squamous Epithelial 0-3 HPF (0-3); Urobilinogen Normal mg/dL (Less than 2); WBC/HPF 0-3 HPF (0-3); pH, Urine 6.5 (5.0-9.0)
[2022-08-17 20:26] LABS: Bacteria/HPF 1+ HPF (None Seen)
[2022-08-17 20:42] LABS: ALT (SGPT) 11 U/L (8-55); AST (SGOT) 16 U/L (5-34); Albumin 4.1 g/dL (3.4-4.8); Alkaline Phosphatase 67 U/L (40-110); Anion Gap 13 mmol/L (10-20); BUN (Urea Nitrogen) 19 mg/dL (9.8-20.1); Bilirubin, Total 0.4 mg/dL (0.2-1.2); Calc. Creatinine Clearance 0 mL/min (70-130); Calcium 9.2 mg/dL (7.8-10.44); Carbon Dioxide 27 mmol/L (23-31); Chloride 101 mmol/L (98-107); Estimated GFR 75; Globulin 2.9 g/dL (2.4-3.5); Glucose 104 mg/dL (83-110); Potassium 3.6 mmol/L (3.5-5.1); Sodium 137 mmol/L (136-145)
== END 2022-08-17 21:49 | disposition home or self-care (01) ==
LOC: ERS 16:55
DX: I10 Essential (primary) hypertension (principal); E78.00 Pure hypercholesterolemia, unspecified; E03.9 Hypothyroidism, unspecified; Z79.899 Other long term (current) drug therapy; Z79.82 Long term (current) use of aspirin
CPT/HCPCS: 36415; 71045; 80053; 81003; 81015; 84484; 85025; 93005

== ENCOUNTER 2023-07-25 21:36 | Emergency (ER) | payer MEDICARE | END 2023-07-25 23:12 | disposition home or self-care (01) | LOC: ERS 21:36 | DX: R05.9 Cough, unspecified (principal); I10 Essential (primary) hypertension; E78.00 Pure hypercholesterolemia, unspecified | CPT/HCPCS: 71045 ==

== ENCOUNTER 2023-09-20 18:29 | Emergency (ER) | payer MEDICARE ==
[2023-09-20 19:11] LABS: #Basophils 0.1 thou/uL (0.0-0.2); #Eosinphils 0.4 thou/uL (0.0-0.7); #Monocytes 0.7 thou/uL (0.11-0.59); #Neutrophils 4.3 thou/uL (1.40-6.50); %Basophils 1.4 % (0.0-1.0); %Eosinophils 4.5 % (0.0-10.0); %Lymphocytes 30.7 % (21.0-51.0); %Monocytes 8.6 % (0.0-10.0); %Neutrophils 54.3 % (42.0-75.0); Hematocrit 35.5 % (36.0-47.0); Hemoglobin 11.8 g/dL (12.0-16.0); Mean Corpuscular HGB CONC 33.2 g/dL (32.0-36.0); Mean Corpuscular Hemoglobin 31.1 pg (27.0-31.0); Mean Corpuscular Volume 93.4 fl (78.0-98.0); Mean Platelet Volume 9.5 fL (7.4-10.4); Platelet Count 222 10x3/uL (130-400); RBC Distribution Width 13.2 % (11.5-14.5)
[2023-09-20 19:33] LABS: ALT (SGPT) 18 U/L (8-55); AST (SGOT) 21 U/L (5-34); Albumin 4.1 g/dL (3.4-4.8); Alkaline Phosphatase 70 U/L (40-110); Anion Gap 12 mmol/L (10-20); BUN (Urea Nitrogen) 20 mg/dL (9.8-20.1); Bilirubin, Total 0.4 mg/dL (0.2-1.2); Calc. Creatinine Clearance 0 mL/min (70-130); Calcium 9.1 mg/dL (7.8-10.44); Carbon Dioxide 25 mmol/L (23-31); Chloride 99 mmol/L (98-107); Estimated GFR 64; Glucose 106 mg/dL (83-110); Potassium 3.8 mmol/L (3.5-5.1); Protein, Total 7.1 g/dL (5.8-8.1); Sodium 132 mmol/L (136-145)
[2023-09-20 19:44] LABS: Troponin I Less than 0.010 ng/mL (< 0.028)
== END 2023-09-20 20:15 | disposition home or self-care (01) ==
LOC: ERS 18:29
DX: R07.9 Chest pain, unspecified (principal); I10 Essential (primary) hypertension
CPT/HCPCS: 36415; 71045; 80053; 84484; 85025; 93005

== ENCOUNTER 2024-09-08 18:26 | Emergency (ER) | payer MEDICARE, SELFPAY ==
[2024-09-08 19:01] LABS: #Basophils 0.08 10x3/uL (0.0-0.2); %Eosinophils 5.7 % (0.0-10.0); %Lymphocytes 28.6 % (21.0-51.0); %Monocytes 8.7 % (0.0-10.0); %Neutrophils 55.7 % (42.0-75.0); Hematocrit 33.2 % (36.0-47.0); Hemoglobin 10.8 g/dL (12.0-16.0); Mean Corpuscular HGB CONC 32.5 g/dL (32.0-36.0); Mean Corpuscular Hemoglobin 29.6 pg (27.0-31.0); Mean Platelet Volume 9.5 fL (7.4-10.4); Platelet Count 209 10x3/uL (130-400); RBC Distribution Width 13.3 % (11.5-14.5); Red Blood Cell (RBC) Count 3.65 mill/uL (4.20-5.40)
[2024-09-08 19:18] LABS: ALT (SGPT) 10 U/L (Less than 34); AST (SGOT) 27 U/L (11-34); Albumin 3.4 g/dL (3.1-4.5); Alkaline Phosphatase 66 U/L (40-110); Anion Gap 12 mmol/L (10-20); BUN (Urea Nitrogen) 20 mg/dL (9.8-20.1); Bilirubin, Total 0.3 mg/dL (0.3-1.2); Calc. Creatinine Clearance 0 mL/min (70-130); Calcium 9.2 mg/dL (7.8-10.44); Carbon Dioxide 26 mmol/L (23-31); Chloride 104 mmol/L (98-107); Estimated GFR 64; Globulin 2.9 g/dL (2.4-3.5); Glucose 106 mg/dL (83-110); Potassium 3.1 mmol/L (3.5-5.1); Protein, Total 6.3 g/dL (5.8-8.1); Sodium 139 mmol/L (136-145)
[2024-09-08 19:19] LABS: Troponin I Less than 0.010 ng/mL (< 0.028)
[2024-09-08] MEDS ORDERED: Potassium Chloride 20 MEQ TAB ONE (19:49)
[2024-09-08 21:21] LABS: Troponin I 0.011 ng/mL (< 0.028)
== END 2024-09-08 21:37 | disposition home or self-care (01) ==
LOC: ERS 18:26
DX: R07.89 Other chest pain (principal); I10 Essential (primary) hypertension
CPT/HCPCS: 36415; 71045; 80053; 84484; 85025; 93005

== ENCOUNTER 2025-03-04 22:25 | Emergency (ER) | payer MEDICARE ==
[2025-03-04 22:51] LABS: #Basophils 0.08 10x3/uL (0.0-0.2); #Eosinophils 0.31 10x3/uL (0.0-0.7); #Monocytes 0.81 10x3/uL (0.11-0.59); #Neutrophils 3.65 10x3/uL (1.40-6.50); %Basophils 1.1 % (0.0-1.0); %Eosinophils 4.3 % (0.0-10.0); %Lymphocytes 31.9 % (21.0-51.0); %Monocytes 11.3 % (0.0-10.0); %Neutrophils 51.3 % (42.0-75.0); Hematocrit 31.5 % (36.0-47.0); Hemoglobin 10.4 g/dL (12.0-16.0); Mean Corpuscular Hemoglobin 30.5 pg (27.0-31.0); Mean Corpuscular Volume 92.4 fL (78.0-98.0); Platelet Count 236 10x3/uL (130-400); Red Blood Cell (RBC) Count 3.41 mill/uL (4.20-5.40); White Blood Cell (WBC) Count 7.14 10x3/uL (4.8-10.8)
[2025-03-04 23:06] LABS: ALT (SGPT) 27 U/L (Less than 34); AST (SGOT) 30 U/L (11-34); Albumin 3.4 g/dL (3.1-4.5); Alkaline Phosphatase 93 U/L (40-110); Anion Gap 14 mmol/L (10-20); BUN (Urea Nitrogen) 13 mg/dL (9.8-20.1); Bilirubin, Total 0.6 mg/dL (0.3-1.2); Calc. Creatinine Clearance 0 mL/min (70-130); Calcium 9.0 mg/dL (7.8-10.44); Carbon Dioxide 26 mmol/L (23-31); Chloride 104 mmol/L (98-107); Globulin 3.1 g/dL (2.4-3.5); Glucose 109 mg/dL (83-110); Potassium 3.5 mmol/L (3.5-5.1); Sodium 140 mmol/L (136-145)
[2025-03-04 23:48] LABS: Lipase 16 U/L (8-78); Magnesium 2.0 mg/dL (1.6-2.6)
[2025-03-04 23:54] LABS: Troponin I Less than 0.010 ng/mL (< 0.028)
== END 2025-03-05 00:45 | disposition home or self-care (01) ==
LOC: ERS 22:25
DX: R11.2 Nausea with vomiting, unspecified (principal); I10 Essential (primary) hypertension
CPT/HCPCS: 80053; 83690; 83735; 84484; 85025; 87428; 93005; 99284

== ENCOUNTER 2025-04-23 18:48 | Emergency (ER) | payer MEDICARE | END 2025-04-23 20:40 | LOC: ERS 18:48 | DX: U07.1 COVID-19 (principal); I10 Essential (primary) hypertension; Z75.3 Unavailability and inaccessibility of health-care facilities | CPT/HCPCS: 71045; 87400; 87426; 93005; 94640; 94760 ==

== ENCOUNTER 2025-07-01 10:04 | Emergency (ER) | payer OTHER ==
[2025-07-01 10:33] LABS: #Basophils 0.08 10x3/uL (0.0-0.2); #Eosinophils 0.12 10x3/uL (0.0-0.7); #Monocytes 0.86 10x3/uL (0.11-0.59); #Neutrophils 11.26 10x3/uL (1.40-6.50); %Basophils 0.6 % (0.0-1.0); %Eosinophils 0.9 % (0.0-10.0); %Lymphocytes 10.2 % (21.0-51.0); %Monocytes 6.2 % (0.0-10.0); %Neutrophils 81.6 % (42.0-75.0); Hematocrit 31.4 % (36.0-47.0); Hemoglobin 10.3 g/dL (12.0-16.0); Mean Corpuscular Hemoglobin 29.9 pg (27.0-31.0); Mean Corpuscular Volume 91.3 fL (78.0-98.0); Platelet Count 172 10x3/uL (130-400); Red Blood Cell (RBC) Count 3.44 mill/uL (4.20-5.40); White Blood Cell (WBC) Count 13.79 10x3/uL (4.8-10.8)
[2025-07-01] MEDS ORDERED: Ondansetron PF 4 MG/2 ML Vial ONE (10:54)
[2025-07-01 10:55] LABS: ALT (SGPT) 19 U/L (Less than 34); AST (SGOT) 21 U/L (11-34); Albumin 3.4 g/dL (3.1-4.5); Alkaline Phosphatase 56 U/L (40-110); Anion Gap 14 mmol/L (10-20); BUN (Urea Nitrogen) 16 mg/dL (9.8-20.1); Bilirubin, Total 0.7 mg/dL (0.3-1.2); Calc. Creatinine Clearance 0 mL/min (70-130); Calcium 8.6 mg/dL (7.8-10.44); Carbon Dioxide 23 mmol/L (23-31); Chloride 105 mmol/L (98-107); Globulin 2.6 g/dL (2.4-3.5); Glucose 130 mg/dL (83-110); Lipase 14 U/L (8-78); Potassium 3.3 mmol/L (3.5-5.1); Sodium 139 mmol/L (136-145)
[2025-07-01 10:56] LABS: Bacteria/HPF 2+ HPF (None Seen); CAUTI Indications for Culture Pelvic or flank pain; Glucose, Urine (Dipstick) Normal (Negative); Leukocyte 25 Leu/uL (Negative); Protein, Urine (Dipstick) Negative (Neg-Trace); RBC/HPF 0-3 HPF (0-3); Specific Gravity, Urine 1.011 (1.002-1.036)
[2025-07-01 11:00] LABS: Urine Culture Reflex No No
[2025-07-01] MEDS ORDERED: Sulfameth/Trimethoprim DS 800-160mg TAB ONE (13:20)
[2025-07-01] MEDS ORDERED: Iopamidol-370 76% 500 ML MDV (1 ML CHARGE) ONE (13:29)
== END 2025-07-01 13:24 | disposition home or self-care (01) ==
LOC: ERS 10:04
DX: N39.0 Urinary tract infection, site not specified (principal); R11.2 Nausea with vomiting, unspecified; I10 Essential (primary) hypertension; E78.00 Pure hypercholesterolemia, unspecified; Z79.82 Long term (current) use of aspirin; Z79.899 Other long term (current) drug therapy
CPT/HCPCS: 74177; 80053; 81001; 83690; 84484; 85025; 87428; 93005; 94760; J2405; 96361; 96374